=== PATIENT | male | born 1950 | race Caucasian/White ===

== ENCOUNTER 2022-12-05 13:30 | Observation (INO) | payer BC ==
[2022-12-05 15:38] VITALS: BMI 29.7
[2022-12-05] MEDS ORDERED: Ondansetron ODT 4 MG TAB PO PRN (16:05)
[2022-12-05] MEDS ORDERED: Ondansetron PF 4 MG/2 ML Vial IVP PRN (16:05)
[2022-12-05] MEDS ORDERED: Senokot S 8.6-50 MG TAB PO PRN (16:05)
[2022-12-05] MEDS ORDERED: Calcium Carbonate 500 MG ChewTAB PO PRN (16:05)
[2022-12-05] MEDS ORDERED: Acetaminophen 325 MG TAB PO PRN (16:05)
[2022-12-05] MEDS ORDERED: Lorazepam 1 MG TAB PO PRN (16:14)
[2022-12-05] MEDS: Icosapent Ethyl 1 GM CAPSULE PO SCH (17:05)
[2022-12-05 17:27] LABS: Troponin I 0.012 ng/mL (< 0.028)
[2022-12-05] MEDS ORDERED: Zolpidem Tartrate 5 MG TAB PO SCH (21:00)
[2022-12-05] MEDS ORDERED: Atorvastatin Calcium 40 MG TAB PO SCH (21:00)
[2022-12-05 21:11] LABS: Troponin I 0.012 ng/mL (< 0.028)
[2022-12-06 05:13] LABS: #Basophils 0.1 thou/uL (0.0-0.2); #Eosinphils 0.7 thou/uL (0.0-0.7); #Monocytes 1.5 thou/uL (0.11-0.59); #Neutrophils 4.1 thou/uL (1.40-6.50); %Basophils 0.8 % (0.0-1.0); %Eosinophils 5.8 % (0.0-10.0); %Lymphocytes 45.4 % (21.0-51.0); %Monocytes 12.6 % (0.0-10.0); %Neutrophils 35.1 % (42.0-75.0); Hemoglobin 13.6 g/dL (14.0-18.0); Mean Corpuscular HGB CONC 32.2 g/dL (32.0-36.0); Mean Corpuscular Hemoglobin 30.2 pg (27.0-31.0); Mean Corpuscular Volume 93.6 fl (78.0-98.0); Mean Platelet Volume 9.4 fL (7.4-10.4); Platelet Count 325 10x3/uL (130-400); Red Blood Cell (RBC) Count 4.51 mill/uL (4.70-6.10); White Blood Cell (WBC) Count 11.8 10x3/uL (4.8-10.8)
[2022-12-06 05:37] LABS: ALT (SGPT) 26 U/L (8-55); AST (SGOT) 26 U/L (5-34); Albumin 3.6 g/dL (3.4-4.8); Alkaline Phosphatase 65 U/L (40-110); Anion Gap 13 mmol/L (10-20); BUN (Urea Nitrogen) 22 mg/dL (8.4-25.7); Bilirubin, Total 0.7 mg/dL (0.2-1.2); Calc. Creatinine Clearance 64 mL/min (70-130); Calcium 8.8 mg/dL (7.8-10.44); Carbon Dioxide 23 mmol/L (23-31); Cardiac Risk 3.2 (Less than 4.5); Chloride 107 mmol/L (98-107); Cholesterol 130 mg/dl (< 200 Desired); Estimated GFR 57; Globulin 2.9 g/dL (2.4-3.5); Glucose 108 mg/dL (83-110); HDL Cholesterol 41 mg/dL (>60 Neg Risk); LDL Cholesterol, Calculated 69 mg/dL; Magnesium 2.2 mg/dL (1.6-2.6); Potassium 4.7 mmol/L (3.5-5.1); Protein, Total 6.5 g/dL (5.8-8.1); Sodium 138 mmol/L (136-145); Triglycerides 99 mg/dL (Less than 150)
[2022-12-06] MEDS ORDERED: Levothyroxine Sodium 100 MCG TAB PO SCH (06:00)
[2022-12-06 07:24] LABS: Hemoglobin A1c 5.8 % (4.0-6.0)
[2022-12-06] MEDS ORDERED: Lactated Ringer's 1,000 ML IV SCH (08:15)
[2022-12-06] MEDS: Icosapent Ethyl 1 GM CAPSULE PO SCH (08:43)
[2022-12-06] MEDS ORDERED: Amlodipine 5 MG TAB PO SCH (09:00)
[2022-12-06] MEDS ORDERED: Aspirin 81 mg Enteric Coated Tablet PO SCH (09:00)
[2022-12-06] MEDS ORDERED: Venlafaxine HCl XR 75 MG CAP PO SCH (09:00)
[2022-12-06] MEDS ORDERED: Ezetimibe 10 MG TAB PO SCH (09:00)
[2022-12-06 11:41] VITALS: BP 131/60; TEMP 98.1
[2022-12-06] MEDS ORDERED: Artificial Tear Sol 15 ML BOT EA EYE PRN (14:16)
== END 2022-12-06 16:55 | disposition home or self-care (01) ==
LOC: 2SW 13:30 → INTOOBSV 16:11 → OBSVTOIN 16:11
PROVIDERS: ADMIT Internal Medicine; ATTEND Internal Medicine
DX: R00.2 Palpitations (principal); I25.10 Atherosclerotic heart disease of native coronary artery without angina pectoris; I35.2 Nonrheumatic aortic (valve) stenosis with insufficiency; I12.9 Hypertensive chronic kidney disease with stage 1 through stage 4 chronic kidney disease, or unspecified chronic kidney disease; N18.9 Chronic kidney disease, unspecified; E78.5 Hyperlipidemia, unspecified; Z85.72 Personal history of non-Hodgkin lymphomas; Z79.82 Long term (current) use of aspirin; Z79.890 Hormone replacement therapy; Z79.899 Other long term (current) drug therapy; Z95.1 Presence of aortocoronary bypass graft
CPT/HCPCS: 36415; 80053; 80061; 83036; 83735; 85025; 93306; 96372; G0378; J1650; J7120